=== PATIENT | female | born 1950 | race Caucasian/White ===

== ENCOUNTER 2021-09-29 15:15 | Outpatient (CLI) | payer MEDICARE ==
[~2021-09-29 15:15] MED LIST: ALBU2.5V10 NEB; CALC-1215 PO; CHOL200016 PO; DICL75TA5 PO; FERR134T2 PO; LEVA15HF4 INH; MULT-1085 PO; OMEP40CA21 PO; WALKERFR
[2021-09-29 15:39] LABS: ABG BASE EXCESS -3.3 mmol/L (-2.0-2.0); ABG HCO3 19.9 mmol/L (22.0-26.0); ABG PCO2 (T) 30.8 mmHg (32.0-45.0); ABG PO2 (T) 91.3 mmHg (75.0-100.0); ALLEN'S TEST POSITIVE; FCOHb 0.4 % (0.0-3.9); FMetHb 0.1 % (0.0-1.5); FO2Hb 96.5 % (94-97); TOTAL HEMOGLOBIN 13.8 G/dl (12.0-16.0)
== END 2021-09-29 23:59 | disposition home or self-care (01) ==
LOC: RT 15:15
PROVIDERS: ATTEND Internal Medicine Cardiovascular Disease
DX: R06.02 Shortness of breath (principal)
CPT/HCPCS: 36600; 82803; 85018; 94010; 94727; 94729

== ENCOUNTER 2022-02-02 09:23 | Day surgery (SDC) | payer MEDICARE ==
[~2022-02-02] VITALS: Ht 172.7 cm; Wt 135.3 kg
[2022-02-02] VITALS (15 sets, daily range): BP systolic 112–156; BP diastolic 57–99
[2022-02-02] MEDS ORDERED: nitroGLYCERIN 0.4mg SUBLingual tab SL PRN ×2 (09:40→13:10)
[2022-02-02] MEDS ORDERED: normal saline 1,000 ML IV SCH (09:45)
[2022-02-02] MEDS ORDERED: diphenhydrAMINE 25mg capsule PO PRN (09:45)
[2022-02-02] MEDS ORDERED: LORazepam 0.5 MG tablet PO PRN (09:45)
[2022-02-02] MEDS ORDERED: ATOR20TA66 PO (09:54)
[2022-02-02] MEDS ORDERED: CETI-90 PO (09:54)
[2022-02-02] MEDS ORDERED: LORA-512 PO (09:54)
[2022-02-02 10:07] LABS: BASOPHILS % (AUTO) 0.2 % (0-1); EOSINOPHILS # (AUTO) 0.4 X10'3 (0-0.9); EOSINOPHILS % (AUTO) 4.3 % (0-6); HEMATOCRIT 40.5 % (35.0-45.0); HEMOGLOBIN 13.8 g/dl (12.0-16.0); LYMPHOCYTES # (AUTO) 2.3 X10'3 (1.1-4.8); LYMPHOCYTES % (AUTO) 26.1 % (21-51); MEAN CORPUSCULAR HEMOGLOBIN 29.8 PG (27.0-31.0); MEAN CORPUSCULAR VOLUME 87.7 FL (78-98); MEAN PLATELET VOLUME 8.2 FL (7.4-10.4); MONOCYTES # (AUTO) 0.5 X10'3 (0-0.9); MONOCYTES % (AUTO) 5.6 % (2-12); NEUTROPHILS # (AUTO) 5.5 X10'3 (1.8-7.7); NEUTROPHILS % (AUTO) 63.8 % (42-75); PLATELET COUNT 340 X10'3 (140-440); RED BLOOD COUNT 4.62 X10'6 (4.20-5.60); RED CELL DISTRIBUTION WIDTH 13.9 % (11.5-14.5); WHITE BLOOD COUNT 8.6 X10'3 (4.5-11.0)
[2022-02-02 10:38] LABS: ALBUMIN 3.8 G/DL (3.4-5.0); ANION GAP 11 (8-16); BLOOD UREA NITROGEN 24 MG/DL (7-18); CALCIUM 9.2 MG/DL (8.5-10.1); CHLORIDE 106 MMOL/L (99-107); CREATININE 1.26 MG/DL (0.40-0.90); GLUCOSE 122 MG/DL (70-104); POTASSIUM 4.5 MMOL/L (3.5-5.1); SODIUM 141 MMOL/L (135-145); TOTAL CARBON DIOXIDE 23.6 MMOL/L (24-32); eGFR 42 ML/MIN
[2022-02-02] MEDS ORDERED: midazolam 1 mg/ML 2ml injection ONE ×2 (10:45→11:26)
[2022-02-02] MEDS ORDERED: fentaNYL/PF 50MCG/1 ML 2ML syringe ONE ×2 (10:45→11:42)
[2022-02-02] MEDS ORDERED: iohexol 350MG/ML 100ml bottle IV ONE ×2 (10:45)
[2022-02-02] MEDS ORDERED: LIDOcaine 1% 30ml preserv. free vial ONE (10:55)
[2022-02-02 10:57] LABS: APTT 20 SECONDS (22-32)
[2022-02-02] MEDS ORDERED: HYDROcodone/acetaminophen 10/325mg tab PO PRN (13:10)
[2022-02-02] MEDS ORDERED: OXAZEpam 15mg capsule PO PRN (13:10)
[2022-02-02] MEDS ORDERED: ondansetron/PF 4mg/2ml inj IV PRN (13:10)
[2022-02-02] MEDS ORDERED: HYDROcodone/acetaminophen 5mg/325mg tablet PO PRN (13:10)
[2022-02-02 15:56] LABS: ISTAT HGB ART 11.9 g/dl (12.0-16.0); ISTAT Hct ART 35 %PCV (35-48); ISTAT O2 SATURATION ARTERIAL 97 % (95-98); ISTAT SOURCE ART
== END 2022-02-02 18:00 | disposition home or self-care (01) ==
LOC: SSTAY O 09:23
PROVIDERS: ATTEND Internal Medicine Cardiovascular Disease
DX: R94.39 Abnormal result of other cardiovascular function study (principal); R06.02 Shortness of breath; M19.90 Unspecified osteoarthritis, unspecified site; E78.5 Hyperlipidemia, unspecified; F41.0 Panic disorder [episodic paroxysmal anxiety]; E66.01 Morbid (severe) obesity due to excess calories; Z68.42 Body mass index [BMI] 45.0-49.9, adult; Z96.653 Presence of artificial knee joint, bilateral; Z96.649 Presence of unspecified artificial hip joint; Z88.0 Allergy status to penicillin; Z86.16 Personal history of COVID-19; Z79.899 Other long term (current) drug therapy
CPT/HCPCS: 36415; 80048; 82803; 83880; 84484; 85014; 85025; 85610; 85730; 93005; 93460; 99152; 99153; C1751; C1760; C1769; J1644; J2250; J3010; J3490; J7030; Q9967; A4620; A6258